=== PATIENT | male | born 1950 | race Caucasian/White ===

== ENCOUNTER 2023-04-16 20:25 | Emergency (ER) | payer MEDICARE, OTHER ==
[~2023-04-16] VITALS: Ht 175.3 cm; Wt 91.0 kg
[2023-04-16 21:08] VITALS: BP 142/85; PULSE 72; RESP 16; TEMP 98.3
== END 2023-04-16 22:40 | disposition left against medical advice (07) ==
LOC: EMS 20:27
DX: M79.672 Pain in left foot (principal); M79.671 Pain in right foot; Z53.21 Procedure and treatment not carried out due to patient leaving prior to being seen by health care provider
CPT/HCPCS: 99281; Z7502

== ENCOUNTER 2023-05-23 09:11 | Inpatient (IN) | payer MEDICARE, OTHER ==
[~2023-05-23] VITALS: Ht 172.7 cm; Wt 84.7 kg
[2023-05-23 10:10] LABS: BASOPHILS % (AUTO) 0.5 % (0.0-2.0); EOSINOPHILS % (AUTO) 4.1 % (1.0-6.0); HEMATOCRIT 41.5 % (41-53); HEMOGLOBIN 13.5 g/dL (13.5-17.5); LYMPHOCYTES # (AUTO) 0.7 K/uL (1.0-4.8); LYMPHOCYTES % (AUTO) 19.8 % (22.0-44.0); MEAN CORPUSCULAR HEMOGLOBIN 29.8 pg (26.0-34.0); MEAN CORPUSCULAR HGB CONC 32.5 G/dL (31.0-37.0); MEAN CORPUSCULAR VOLUME 92 fL (80-100); MONOCYTES # (AUTO) 0.4 K/uL (0.1-1.0); MONOCYTES % (AUTO) 9.5 % (2.0-9.0); NEUTROPHILS # (AUTO) 2.5 K/uL (1.8-7.7); NEUTROPHILS % (AUTO) 66.1 % (40.0-70.0); RED BLOOD CELL COUNT(AUTO) 4.51 MIL/uL (4.50-5.90); RED CELL DISTRIBUTION WIDTH 16.8 % (11.5-14.5); WHITE BLOOD COUNT (AUTO) 3.8 K/uL (4.5-11.0)
[2023-05-23 10:19] LABS: ANION GAP 8 mmol/L (8-16); CALCIUM, TOTAL 9.3 mg/dL (8.8-10.5); CARBON DIOXIDE 25 mmol/L (22-29); CHLORIDE 106 mmol/L (98-107); CREATININE 0.99 mg/dL (0.60-1.30); GLOMERULAR FILTR. RATE CALC > 60 mL/min (>60); GLUCOSE,RANDOM 132 mg/dL (70-110); POTASSIUM 4.5 mmol/L (3.5-5.1); SODIUM SERUM 139 mmol/L (136-145); UREA NITROGEN, BLOOD 10 mg/dL (7-18)
[2023-05-23 10:24] LABS: ALBUMIN 2.7 g/dL (3.4-5.0); ALKALINE PHOSPHATASE 118 U/L (46-116); ASPARTATE AMINOTRANSFERASE 24 U/L (15-37); BILIRUBIN,TOTAL 1.4 mg/dL (0.1-1.0); TOTAL PROTEIN, SERUM 6.3 g/dL (6.4-8.2)
[2023-05-23 10:25] LABS: PLATELET COUNT (AUTO) 70 K/uL (150-450)
[2023-05-23 10:26] LABS: RBC MORPHOLOGY COMMENT NORMAL RBC MORPH
[2023-05-23 10:28] LABS: B-TYPE NATRIURETIC PEPTIDE 59 pg/mL (0-100)
[2023-05-23 10:29] LABS: TROPONIN I-HIGH SENSITIVITY 9 ng/L (<76)
[2023-05-23 10:37] LABS: ALANINE AMINOTRANSFERASE < 6 U/L (12-78)
[2023-05-23 10:40] LABS: COVID AG,FIA SOURCE NASOPHARYNGEAL
[2023-05-23 11:08] LABS: SARS-COV2 (COVID) ANTIGEN,FIA Negative (Negative)
[2023-05-23] MEDS ORDERED: ONDANSETRON HCL 4 MG/2 ML VIAL IVP PRN (13:15)
[2023-05-23] MEDS ORDERED: HYDROCODONE/ACETAMINOPHEN 5-325 MG TABLET PO PRN (13:15)
[2023-05-23] MEDS ORDERED: MORPHINE SULFATE 2 MG/ML SYRINGE IVP PRN (13:15)
[2023-05-23] MEDS ORDERED: ZOLPIDEM TARTRATE 5 MG TABLET PO PRN (13:15)
[2023-05-23] MEDS ORDERED: BISACODYL 10 MG RECTAL RECTAL SUPPOSITORY PR PRN (13:15)
[2023-05-23] MEDS ORDERED: MAGNESIUM HYDROXIDE SUSPENSION 30 ML UDCUP PO PRN (13:15)
[2023-05-23] MEDS ORDERED: ACETAMINOPHEN 325 MG TABLET PO PRN (13:15)
[2023-05-23 13:34] LABS: APPEARANCE,URINE CLEAR (CLEAR); BILIRUBIN,URINE NEGATIVE (NEGATIVE); COLOR,URINE YELLOW (YELLOW); GLUCOSE, URINE (UA) NEGATIVE (NEGATIVE); KETONES,URINE NEGATIVE (NEGATIVE); LEUKOCYTE ESTERASE ,URINE NEGATIVE (NEGATIVE); NITRATE,URINE NEGATIVE (NEGATIVE); OCCULT BLOOD,URINE NEGATIVE (NEGATIVE); PROTEIN,URINE TRACE mg/dL (NEGATIVE); SPECIFIC GRAVITIY, URINE 1.019 (1.003-1.030)
[2023-05-23] MEDS ORDERED: ATEN-73 PO (13:50)
[2023-05-23] MEDS ORDERED: PANT-31 PO (13:50)
[2023-05-23] MEDS ORDERED: CARB1TAB36 PO ×2 (13:50)
[2023-05-23] MEDS ORDERED: ACET-2247 PO (13:50)
[2023-05-23] MEDS ORDERED: ALLO-45 PO (13:50)
[2023-05-23] MEDS ORDERED: DABI150C2 PO (13:50)
[2023-05-23] MEDS ORDERED: ATOR40TA71 PO (13:50)
[2023-05-23 14:48] VITALS: BP 131/68; PULSE 65; RESP 18; TEMP 97.8
[2023-05-23 16:00] VITALS: BP 134/96; PULSE 69; RESP 18; TEMP 97.8
[2023-05-23] MEDS: HEPARIN SODIUM,PORCINE 5,000 UNITS/ML VIAL SQ SCH (16:00)
[2023-05-23 20:08] VITALS: BP 145/72; PULSE 69; RESP 18; TEMP 98.3
[2023-05-23] MEDS: DOCUSATE SODIUM 100 MG CAPSULE PO SCH (21:42)
[2023-05-24] VITALS (8 sets, daily range): BP systolic 112–150; BP diastolic 56–83; PULSE 65–75; RESP 16–18; TEMP 96.1–98.2
[2023-05-24] MEDS: DOCUSATE SODIUM 100 MG CAPSULE PO SCH ×2 (08:46→20:37)
[2023-05-24] MEDS: PANTOPRAZOLE SODIUM 40 MG DR TABLET PO SCH (08:46)
[2023-05-24] MEDS: HEPARIN SODIUM,PORCINE 5,000 UNITS/ML VIAL SQ SCH ×2 (10:52)
[2023-05-24] MEDS: DABIGATRAN ETEXILATE MESYLATE 150 MG CAPSULE PO SCH (20:37)
[2023-05-25 04:57] VITALS: BP 140/71; PULSE 77; RESP 18; TEMP 98
[2023-05-25 08:00] VITALS: BP 88/54; PULSE 72; RESP 18; TEMP 97.6
[2023-05-25] MEDS: DOCUSATE SODIUM 100 MG CAPSULE PO SCH ×2 (09:48→20:22)
[2023-05-25] MEDS: PANTOPRAZOLE SODIUM 40 MG DR TABLET PO SCH (09:48)
[2023-05-25] MEDS: DABIGATRAN ETEXILATE MESYLATE 150 MG CAPSULE PO SCH ×2 (09:48→20:22)
[2023-05-25 11:40] VITALS: BP 120/70; PULSE 71; RESP 18; TEMP 97.5
[2023-05-25 15:26] VITALS: BP 106/71; RESP 18; TEMP 97.5
[2023-05-25 19:43] VITALS: BP 150/84; PULSE 77; RESP 18; TEMP 97.7
[2023-05-25 23:52] VITALS: BP 142/87; PULSE 87; RESP 18; TEMP 97.6
[2023-05-26 03:26] VITALS: BP 124/63; PULSE 74; RESP 18; TEMP 98.1
[2023-05-26 07:27] VITALS: BP 138/69; PULSE 73; RESP 18; TEMP 98
[2023-05-26] MEDS: DOCUSATE SODIUM 100 MG CAPSULE PO SCH (09:00)
[2023-05-26] MEDS: PANTOPRAZOLE SODIUM 40 MG DR TABLET PO SCH (09:31)
[2023-05-26] MEDS: DABIGATRAN ETEXILATE MESYLATE 150 MG CAPSULE PO SCH (09:31)
[2023-05-26 11:33] VITALS: BP 116/68; PULSE 70; RESP 18; TEMP 98.3
== END 2023-05-26 15:45 | disposition home health service (06) | DRG 71 ==
LOC: EMS 09:11 → AHU 11:14 → 5S 11:47
PROVIDERS: ADMIT Internal Medicine; ATTEND Internal Medicine
DX: G93.41 Metabolic encephalopathy (principal); I48.92 Unspecified atrial flutter; R00.1 Bradycardia, unspecified; I10 Essential (primary) hypertension; E78.5 Hyperlipidemia, unspecified; M10.9 Gout, unspecified; I95.9 Hypotension, unspecified; I48.91 Unspecified atrial fibrillation; G20 Parkinson's disease; Z20.822 Contact with and (suspected) exposure to COVID-19; F02.80 Dementia in other diseases classified elsewhere, unspecified severity, without behavioral disturbance, psychotic disturbance, mood disturbance, and anxiety; E11.9 Type 2 diabetes mellitus without complications; Z96.649 Presence of unspecified artificial hip joint; K21.9 Gastro-esophageal reflux disease without esophagitis; Z88.8 Allergy status to other drugs, medicaments and biological substances
CPT/HCPCS: 71045; 80053; 81003; 83880; 84484; 85025; 93005; 93306; 97116; 97162; 97167; 97535; 99291; G0378; J1644; 36415-L1; 36415-TC

== ENCOUNTER 2024-06-01 05:35 | Emergency (ER) | payer MEDICARE, OTHER ==
[~2024-06-01] VITALS: Ht 177.8 cm; Wt 86.4 kg
[~2024-06-01 05:35] MED LIST: ACET-2247 PO; ATOR40TA71 PO; CARB1TAB36 PO; PANT-31 PO
[2024-06-01 06:49] VITALS: BP 103/58; PULSE 87; RESP 18; TEMP 98.4; O2SAT 94
[2024-06-01 07:02] LABS: ANION GAP 11 mmol/L (8-16); CALCIUM, TOTAL 8.5 mg/dL (8.8-10.5); CARBON DIOXIDE 23 mmol/L (22-29); CHLORIDE 103 mmol/L (98-107); CREATININE 0.78 mg/dL (0.60-1.30); GLOMERULAR FILTR. RATE CALC > 60 mL/min (>60); GLUCOSE,RANDOM 176 mg/dL (70-110); POTASSIUM 3.7 mmol/L (3.5-5.1); SODIUM SERUM 137 mmol/L (136-145); UREA NITROGEN, BLOOD 14 mg/dL (7-18)
[2024-06-01 07:05] LABS: BASOPHILS % (AUTO) 0.5 % (0.0-2.0); EOSINOPHILS % (AUTO) 3.1 % (1.0-6.0); HEMATOCRIT 44.4 % (41-53); HEMOGLOBIN 14.8 g/dL (13.5-17.5); LYMPHOCYTES # (AUTO) 0.6 K/uL (1.0-4.8); LYMPHOCYTES % (AUTO) 8.8 % (22.0-44.0); MEAN CORPUSCULAR HEMOGLOBIN 31.7 pg (26.0-34.0); MEAN CORPUSCULAR HGB CONC 33.4 G/dL (31.0-37.0); MEAN CORPUSCULAR VOLUME 95 fL (80-100); MONOCYTES # (AUTO) 0.9 K/uL (0.1-1.0); MONOCYTES % (AUTO) 13.2 % (2.0-9.0); NEUTROPHILS # (AUTO) 5.2 K/uL (1.8-7.7); NEUTROPHILS % (AUTO) 74.4 % (40.0-70.0); PLATELET COUNT (AUTO) 78 K/uL (150-450); RED BLOOD CELL COUNT(AUTO) 4.68 MIL/uL (4.50-5.90); RED CELL DISTRIBUTION WIDTH 14.3 % (11.5-14.5)
[2024-06-01 11:36] LABS: GLUCOMETER DEV NAME(LOC) ERT.6; GLUCOSE,POINT OF CARE 183 MG/DL (70-110)
== END 2024-06-01 09:04 | disposition home or self-care (01) ==
LOC: EMS 05:36
DX: S60.511A Abrasion of right hand, initial encounter (principal); I48.91 Unspecified atrial fibrillation; G91.2 (Idiopathic) normal pressure hydrocephalus; E11.9 Type 2 diabetes mellitus without complications; K21.9 Gastro-esophageal reflux disease without esophagitis; I10 Essential (primary) hypertension; R51.9 Headache, unspecified; W19.XXXA Unspecified fall, initial encounter; Y93.89 Activity, other specified; Y92.89 Other specified places as the place of occurrence of the external cause; Y99.8 Other external cause status
CPT/HCPCS: 70450; 72125; 80048; 82962; 85025; 93005; 99284